=== PATIENT | male | born 1970 | race Caucasian/White ===

== ENCOUNTER 2024-06-26 05:22 | Emergency (ER) | payer BC, SELFPAY ==
[2024-06-26] VITALS (20 sets, daily range): BP systolic 133–166; BP diastolic 81–100; PULSE 47–66; RESP 16–20; TEMP 36.1; O2SAT 92–97; BMI 33.5
--- NOTE | 2024-06-26 05:32 | ED_ITS ---
HPI - General Adult General Date Seen: 06/26/24 Chief complaint: Abdominal Pain Stated complaint: right side pain Time Seen by Provider: 06/26/24 05:32 History of Present Illness HPI narrative: This is a 53-year-old gentleman who is generally healthy, has no previous abdominal surgeries, presenting to the ER at about 530 in the morning with severe right lower quadrant abdominal pain. He has been healthy and well lately. He ate a normal meal last night (cheese quesadilla). He was sleeping normally. He got up at around 4:30 a.m. to urinate and around that time he had onset of pain in his right lower quadrant. Urinated and may have passed some gas as well. It came on very suddenly. It has been very intense. He feels like it is a very severe pain located exactly in the right lower quadrant (he is pointing at McBurney's point). The pain does not radiate to his flank or down to his groin. No left-sided pain. The pain makes him nauseous but has not been vomiting. He says he is having some pressure and there like he might have to pass a bowel movement. Prior to onset of the pain he had been normal. No recent nausea or vomiting. No trouble bowel movements. No diarrhea. Urination has been normal. No fever. No injury. Related Data Previous Rx's ?Medication ?Instructions ?Recorded hydrocodone 5 mg-acetaminophen 325 1 tab PO Q4-6H PRN pain #14 tabs 06/26/24 mg tablet ondansetron 4 mg disintegrating 4 mg PO Q8H PRN nausea and 06/26/24 tablet vomiting #10 tabs tamsulosin 0.4 mg capsule (Flomax) 0.4 mg PO DAILY #10 caps 06/26/24 Allergies Allergy/AdvReac Type Severity Reaction Status Date / Time No Known Drug Allergies Allergy Verified 06/26/24 05:25 PFSH PFSH Social History Smoking Status: Never smoker Do you use any of these nicotine containing products: None Second hand tobacco smoke exposure: No How often do you have a drink containing alcohol: monthly or less How many standard drinks containing alcohol do you have on a typical day: 1 or 2 How often do you have six or more drinks on one occasion: Never AUDIT-C Alcohol total score: 1 Non-prescribed substance use: denies use service: No Exam Narrative: Exam Narrative: Constitutional: Appears well-developed and well-nourished. Alert. Very uncomfortable appearing, grimacing, is not diaphoretic but looks little bit pale, likely due to pain. HENT: Head: Atraumatic. Nose: Nose normal. Mouth/Throat: Oral mucosa is clear and moist. no trismus. Pharynx normal. Eyes: Conjunctivae normal. EOM normal. Pupils equal, round, and reactive to light. No scleral icterus. Neck: Normal range of motion. Neck supple. No tracheal deviation present. Cardiovascular: Normal rate, regular rhythm. No gallop. No friction rub. No murmur heard. Symmetric radial artery pulses Pulmonary/Chest: Effort normal. No stridor. No respiratory distress. No wheezes. No rales. No rhonchi . No tenderness. Abdominal: Soft. Bowel sounds normal. No distension. No mass. Endorses severe right lower quadrant tenderness but has no focal tenderness. Pain is not worse with palpation. No other tenderness. No CVA tenderness. No rebound. No guarding. Musculoskeletal: RUE: Normal range of motion. No tenderness. No deformity LUE: Normal range of motion. No tenderness. No deformity RLE: Normal range of motion. No edema. No tenderness. No deformity LLE: Normal range of motion. No edema. No tenderness. No deformity Neurological: Alert and oriented to person, place, and time. Normal strength. CN II-VII intact. No sensory deficit. GCS eye subscore is 4. GCS verbal subscore is 5. GCS motor subscore is 6. Normal coordination Skin: Skin is warm and dry. No rash noted. No pallor. Normal capillary refill. Psychiatric: Normal mood. Looks very uncomfortable. Polite Const: Vital Signs, click to edit/add: Vital Signs - 24 hr 06/26/24 05:25 06/26/24 06:38 06/26/24 07:00 Temperature 97.0 F L Pulse Rate Pulse Rate [Left P ulse Oximeter] 66 53 L 59 L Respiratory Rate 20 16 Blood Pressure Blood Pressure [Ri ght Upper Arm] 166/100 H 139/81 133/83 Pulse Oximetry 95 95 97 Oxygen Delivery Me thod Room Air Nasal Cannula Room Air Oxygen Flow Rate 2 06/26/24 07:13 06/26/24 07:30 06/26/24 07:32 Temperature Pulse Rate 55 L 54 L 56 L Pulse Rate [Left P ulse Oximeter] Respiratory Rate Blood Pressure 142/82 H Blood Pressure [Ri ght Upper Arm] Pulse Oximetry 96 94 95 Oxygen Delivery Me thod Oxygen Flow Rate Course Course ED Course: Recheck -830. Patient is still having some pain and increasing slightly, likely because Dilaudid squaring. Randle ordered for additional pain relief. Still cannot provide urine. Is taking sips of water and received a bolus of fluid. Patient knows we need urine sample to rule out infection. Vital Signs Vital signs: Initial Vital Signs Temperature 97.0 F L 06/26/24 05:25 Temperature Source Temporal Artery Scan 06/26/24 05:25 Pulse Rate 66 06/26/24 05:25 Pulse Rhythm Regular 06/26/24 05:25 Respiratory Rate 20 06/26/24 05:25 Blood Pressure 166/100 H 06/26/24 05:25 Blood Pressure Mean 122 H 06/26/24 05:25 Blood Pressure Position Sitting 06/26/24 05:25 Pulse Oximetry 95 06/26/24 05:25 Oxygen Delivery Method Room Air 06/26/24 05:25 Vital Signs Temperature 97.0 F L 06/26/24 05:25 Pulse Rate 66 06/26/24 05:25 Respiratory Rate 20 06/26/24 05:25 Blood Pressure 166/100 H 06/26/24 05:25 Pulse Oximetry 95 06/26/24 05:25 Oxygen Delivery Method Room Air 06/26/24 05:25 Temperature 97.0 F L 06/26/24 05:25 Pulse Rate 56 L 06/26/24 07:32 Respiratory Rate 16 06/26/24 06:38 Blood Pressure 142/82 H 06/26/24 07:32 Pulse Oximetry 95 06/26/24 07:32 Oxygen Delivery Method Room Air 06/26/24 07:00 Oxygen Flow Rate 2 06/26/24 06:38 Medications Administered Medications: Generic Name Dose Route Start Last Admin Trade Name Freq PRN Reason Stop Dose Admin Hydromorphone HCl 0.5 mg 06/26/24 05:43 06/26/24 05:55 Hydromorphone 0.5 Mg/0.5 Ml Inj IVP 0.5 mg Q1H PRN Administration Pain Discontinued Medications Generic Name Dose Route Start Last Admin Trade Name Brandon PRN Reason Stop Dose Admin Ketorolac Tromethamine 15 mg 06/26/24 05:43 06/26/24 05:52 Ketorolac 15 Mg/Ml Inj IVP 06/26/24 05:44 15 mg ONCE ONE Administration Ondansetron HCl 4 mg 06/26/24 05:43 06/26/24 05:55 Ondansetron 2 Mg/Ml Inj IVP 06/26/24 05:44 4 mg ONCE ONE Administration Medical Decision Making MDM Narrative Medical decision making narrative: This patient presents with abrupt onset of right lower quadrant abdominal pain Differential Diagnosis considered includes: Ureterolithiasis, UTI, pyeloneph ritis, AAA, colitis, diverticulitis, volvulus, appendicitis, cholecystitis, among others. At this point, the evaluation indicates that ureterolithiasis is the cause of the patient's symptoms. The patient's pain is improved after IV meds in ED. The patient is hemodynamically stable in ED. he is overall well-appearing and nontoxic. He was very uncomfortable when he presented but is much better after Toradol and Dilaudid. Kidney function normal. White count at the upper limit of normal, 11.7. I have ordered urinalysis to make sure there is no pyuria or signs of infection. Patient not able to provide urine so far here in the ER. Signed over to my partner Dr. Rivers. He will follow-up on the results of the urinalysis. However I anticipate that the urinalysis will be normal in the patient's pain will remain well controlled. If so he can discharge home. My presumptive plan is discharge to home with recheck by primary care physician or urology. I have written presumptive discharge instructions and prescriptions for pain meds (Randle) nausea meds (Zofran), and Flomax. If the patient has urinary infection or pain is uncontrolled, Dr. Rivers will arrange hospitalization. The patient's questions were answered. Lab Data Labs: Lab Results 06/26/24 Range/Units 05:40 WBC 11.12 H (4.50-11.00) K/uL RBC 5.79 (4.30-5.90) m/uL Hgb 13.7 (13.5-17.5) gm/dL Hct 44.4 (37.0-53.0) % MCV 77 L (80-100) fL MCH 24 L (26-34) pg MCHC 31 L (32-36) gm/dL RDW Coeff of Florentino 18.9 H (11.5-15.5) % Plt Count 380 (140-440) K/uL Neut % (Auto) 47.0 (42.0-72.0) % Lymph % (Auto) 31.2 (20-44) % [place] % (Auto) 10.4 (0.0-11.0) % Eos % (Auto) 9.0 H (0.0-7.0) % Baso % (Auto) 1.2 (0.0-3.0) % Neut # (Auto) 5.20 (1.7-7.0) K/uL Lymph # (Auto) 3.50 H (0.90-2.90) K/uL [place] # (Auto) 1.20 H (0.00-0.90) K/UL Eos # (Auto) 1.00 H (0.00-0.50) K/uL Baso # (Auto) 0.10 (0.00-0.30) K/uL Abs Immat Gran (auto) 0.10 (0.00-0.30) K/uL Imm/Tot Granulo (auto) 1.2 % Sodium 140 (135-149) mmol/L Potassium 3.7 (3.6-5.1) mmol/L Chloride 106 (96-114) mmol/L Carbon Dioxide 25 (20-32) mmol/L Anion Gap 9 (7-15) mEq/L BUN 19 (7-30) mg/dL Creatinine 1.3 (0.5-1.5) mg/dL Estimated Creat Clear 68.38 Estimated GFR 65 ml/min Glucose 123 H (60-115) mg/dL Calcium 9.2 (8.4-10.6) mg/dL Total Bilirubin 0.4 (0.1-1.5) mg/dL AST 35 (12-35) U/L ALT 30 (4-50) U/L Alkaline Phosphatase 70 (40-150) U/L Total Protein 7.2 (6.0-8.3) g/dL Albumin 4.4 (3.3-5.0) g/dL Lipase 117 (23-300) U/L Imaging Data CT scan - abdomen: Attestation: I have reviewed the pertinent imaging results. Radiologist's impression: IMPRESSION: 1. 6 mm obstructing proximal right ureteral stone. 2. Normal appendix. 3. Incidental 7 mm right lower lobe pulmonary nodule for which follow-up chest CT is recommended in 6 months. RECOMMENDATION: 6-MONTH FOLLOW-UP NONCONTRAST CHEST CT. Discharge Plan Discharge Clinical Impression: Kidney stone on right side Patient Disposition: Home, Self-Care Condition: Stable Instructions: Kidney Stones (ED) Additional Instructions: As we discussed, please come back to the ER right away if you have any problems specially worsening or uncontrolled pain, fever or chills, weakness, or uncontrolled nausea or vomiting. To passed her kidney stone try to drink plenty of fluids to stay hydrated. Be sure that you are urinating every couple of hours not your urine is fairly clear colored or light yellow. If your urine is dark colored, you need to drink more fluids. There is a chance he will be able to pass this kidney stone on your own at home, within the next few days. However you do have a fairly large stone. Please call if a urologist today to make a follow-up appointment for next week. You can call [facility] at [phone] OR [facility] [phone] to make an appointment with a urologist within 7-10 days. Prescriptions: New hydrocodone-acetaminophen 5-325 mg tablet 1 tab PO Q4-6H PRN (Reason: pain) Qty: 14 0RF ondansetron 4 mg tablet,disintegrating 4 mg PO Q8H PRN (Reason: nausea and vomiting) Qty: 10 0RF tamsulosin [Flomax] 0.4 mg capsule 0.4 mg PO DAILY Qty: 10 2RF Follow Up/Referrals: Deo Salazar MD [Primary Care Provider] - Stand Alone Forms: [employer] Info Instructions
--- NOTE | 2024-06-26 05:43 | CRLHL7_ITS ---
For Patients: As a result of the 21st Century Cures Act, medical imaging exams and procedure reports are released immediately into your electronic medical record. You may view this report before your referring provider. If you have questions, please contact your health care provider. INDICATION: Acute onset right lower quadrant pain. COMPARISON: None available. TECHNIQUE: CT of the abdomen and pelvis without intravenous contrast. Please note that all CT scans at this facility use dose modulation, iterative reconstruction, and/or weight-based dosing when appropriate to reduce radiation dose to as low as reasonably achievable. FINDINGS: The study is performed without intravenous contrast. This limits the sensitivity of the exam for the detection bowel pathology, focal lesions of the abdominopelvic viscera and vascular pathology including significant vascular stenosis, occlusion and dissection. ABDOMEN Liver: Diffuse hepatic steatosis. Too small to characterize 5 mm circumscribed homogeneous low-density focus in the superior right hepatic lobe (2; 21) statistically likely to represent a cyst for which no further workup or ongoing imaging surveillance is indicated in the absence of an established history of malignancy or significant underlying liver disease. No suspicious focal hepatic lesion. No intrahepatic biliary ductal dilatation. Gallbladder: Normal gallbladder size. Normal common duct caliber. No pericholecystic inflammatory changes. Pancreas: Normal pancreatic attenuation. No focal lesion. Normal duct caliber. No peripancreatic inflammatory changes. Spleen: Normal splenic attenuation. No suspicious focal lesion. Adrenal Glands: Symmetrical adrenal glands. No focal lesion of significance. Kidneys: 6 mm proximal right ureteral stone (2; 97) with associated upstream mild right hydroureteronephrosis. Asymmetrical right renal edema and perinephric stranding are consistent with obstructive uropathy. Normal bilateral renal attenuation. No suspicious focal lesion. Nonobstructing 3 mm left lower pole nephrolith (2; 95). Gastrointestinal tract: Normal caliber, attenuation and wall thickness of the gastrointestinal tract. Sigmoid diverticulosis without associated inflammatory changes. Normal mesentery. Normal appendix. Vascular: Normal outer wall to outer wall abdominal aortic caliber. Patency and luminal caliber of the abdominopelvic arterial and venous vasculature cannot be assessed on this noncontrast study. Additional findings: No incidental adenopathy. No significant ascites, free fluid or pneumoperitoneum. Incidental benign calcifications in the anterior aspect of the lower abdomen and adjacent to the sigmoid colon consistent with small calcified loose intraperitoneal bodies. PELVIS No bladder lesion is identified. No significant incidental findings related to the prostate and seminal vesicles. No abnormal free fluid. No incidental adenopathy. SKELETON AND BODY WALL No acute or suspicious incidental findings. LOWER THORAX Incidental 7 mm (mean diameter) solid right lower lobe nodule (3; 21) with possible (equivocal) peripheral calcification. IMPRESSION: 1. 6 mm obstructing proximal right ureteral stone. 2. Normal appendix. 3. Incidental 7 mm right lower lobe pulmonary nodule for which follow-up chest CT is recommended in 6 months. RECOMMENDATION: 6-MONTH FOLLOW-UP NONCONTRAST CHEST CT. Please note that all CT scans at this facility use dose modulation, iterative reconstruction, and/or weight-based dosing when appropriate to reduce radiation dose to as low as reasonably achievable. Dictated by Noah Covarrubias MD @ 06/26/2024 6:44:42 AM (Electronically Signed)
[2024-06-26 05:50] LABS: Basophils Percent Auto 1.2 % (0.0-3.0); Hematocrit 44.4 % (37.0-53.0); Hemoglobin* 13.7 gm/dL (13.5-17.5); Immature Granulocytes Pct Auto 1.2 %; Lymphocytes Percent Auto 31.2 % (20-44); Mean Corpuscular HGB Conc 31 gm/dL (32-36); Mean Corpuscular Hemoglobin 24 pg (26-34); Mean Corpuscular Volume 77 fL (80-100); Monocytes Percent Auto 10.4 % (0.0-11.0); Platelet Count* 380 K/uL (140-440); RDW Coefficient of Variation % 18.9 % (11.5-15.5); Red Blood Count 5.79 m/uL (4.30-5.90); White Blood Count* 11.12 K/uL (4.50-11.00)
[2024-06-26] MEDS: KETOROLAC 15 MG/ML inj IVP (05:52)
[2024-06-26] MEDS: HYDROmorphone 0.5 mg/0.5 ml inj IVP (05:55)
[2024-06-26] MEDS: ONDANSETRON 2 MG/ML inj 4 MG IVP (05:55)
[2024-06-26 05:56] LABS: Slide Review Reflex No
[2024-06-26 06:03] LABS: Albumin* 4.4 g/dL (3.3-5.0); Chloride* 106 mmol/L (96-114); Potassium* 3.7 mmol/L (3.6-5.1); Sodium* 140 mmol/L (135-149)
[2024-06-26 06:05] LABS: Anion Gap 9 mEq/L (7-15); Bilirubin Total* 0.4 mg/dL (0.1-1.5); Carbon Dioxide* 25 mmol/L (20-32); Creatinine* 1.3 mg/dL (0.5-1.5); Est. Creatinine Clearance* 68.38; Estimated Glomerular Filt Rate 65 ml/min
[2024-06-26 06:06] LABS: Alanine Aminotransferase* 30 U/L (4-50); Alkaline Phosphatase* 70 U/L (40-150); Aspartate Amino Transferase* 35 U/L (12-35); Blood Urea Nitrogen* 19 mg/dL (7-30); Calcium* 9.2 mg/dL (8.4-10.6); Glucose* 123 mg/dL (60-115); Lipase* 117 U/L (23-300); Total Protein* 7.2 g/dL (6.0-8.3)
--- OUTSIDE RECORDS SUMMARY | 2024-06-26 06:29 | XMS_ITS | Clinical Summary ---
Author Organization [facility] Address [place], [place] [address] Care Team Providers Care Target Man Name Role Phone Deo Salazar MD Primary Care Provider Allergies No known active allergies Medications Medication Sig Dispensed Refills Start Date End Date Status omega 2-akq-ecs-fish oil 1,000 mg (250 mg-750 mg)/5 mL liqd Take by mouth. Active aspirin (ECOTRIN) 81 mg enteric coated tablet Take by mouth. Active polyethylene glycol-electrolyte (GOLYTELY) 236-22.74-6.74 -5.86 gram suspensionIndication s:Colon cancer screening Mix according to package instructions. Take 2 liters the day before colonoscopy and take the remaining 2 liters the day of colonoscopy. 4000 mL 07/21/2023 Active albuterol HFA (PRO-AIR; VENTOLIN; PROVENTIL) 90 mcg/actuation inhalerIndications:M ild intermittent asthma without complication Inhale 2 Puffs by mouth every 4 hours. 1 Each 5 10/19/2023 Active pravastatin (PRAVACHOL) 40 mg tabletIndications:Hy percholesterolemia TAKE ONE TABLET BY MOUTH AT BEDTIME . 90 Tablet 04/16/2024 Active losartan (COZAAR) 50 mg tabletIndications:Es sential hypertension TAKE ONE TABLET BY MOUTH ONCE EVERY DAY . 90 Tablet 04/16/2024 Active hydroCHLOROthiazide 12.5 mg tabletIndications:Es sential hypertension TAKE ONE TABLET BY MOUTH ONCE EVERY DAY . 90 Tablet 04/16/2024 Active Active Problems Problem Noted Date Diagnosed Date Mild intermittent asthma without complication Encounters Date Type Department Care Team Description 04/15/[address] [id number] Deo Salazar MD Refill Request (Pravastatin, Losartan, Hydrochlorothiazide) from Last 3 Months Immunizations Name Administration Dates Next Due HepA-HepB (Twinrix) 09/27/2019,09/23/2015,2007 Inactivated Polio Vaccine 08/30/2008 Influenza RIV4 (Age 18+ Years) PRESERV FREE 06/29 Influenza, IIV3 (Age >=3 years) 09/23/2015,09/27 Influenza, IIV4 09/23/2020,09/27/2019,12/03/2018 Influenza, IIV4 (Age 6-35 Mos) 09/29/2013 MMR 09/27/2019 Meningococcal Vaccine (Menomune) 08/02/2008 Pneumococcal conj 13-Valent (Prevnar 13) 019 Td (Age >=7 Years) 12/20/2002,07/19/1991 Tdap 09/27/2019,08/30/2008 Typhoid (injectable) 09/27/2019,09/23/2015 Yellow Fever 08/30/2008 Zoster (Shingrix-RZV, recombinant) 10/02/2020, Family History Medical History Relation Name Comments Diabetes type II Father Cancer Maternal Grandfather testicu lar Cancer-breast Maternal Grandmother Relation Name Status Comments Father (Age 76) Maternal Grandfather Maternal Grandmother Mother Alive Social History Tobacco Use Types Packs/Day Years Used Date Smoking Tobacco: Never Smokeless Tobacco: Never Tobacco Cessation:Counseling Given: Yes Alcohol Use Standard Drinks/Week Comments Yes 0 (1 standard drink = 0.6 oz pur e alcohol) occ. PHQ-2 Answer Date Recorded PHQ-2 TOTAL SCORE 0 04/01/2023 Social Connections Answer Date Recorded Frequency of Communication with Friends and Fami ly Not on file 04/01/2024 Financial Resource Strain Answer Date R ecorded Difficulty of Paying Living Expenses 3 04/01/2023 Difficulty of Paying Living Expenses Not on file 04/01/2023 Food Insecurity Answer Date Recorded Worried About Running Out of Food in the Last Ye ar 1 04/01/2023 Transportation Needs Answer Date Record ed Lack of Transportation (Medical) 1 04/01/2023 Housing Stability Answer Date Recorded Unable to Pay for Housing in the Last Year 1 04/01/2023 Sex and Gender Information Value Date Recorded Sex Assigned at Not on file Gender Identity Not on file Sexual Orientation Not on file Obstetrics History Last Filed Vital Signs Vital Sign Reading Time Taken Comments Blood Pressure 131/78 07/28/2023 9:17 AM CDT Pulse 61 07/28/2023 9:17 AM CDT Temperature 36.5 ??C (97.7 ??F) 07/28/2023 8:05 AM CD T Respiratory Rate 16 07/28/2023 9:17 AM CDT Oxygen Saturation 94% 07/28/2023 9:17 AM CDT Inhaled Oxygen Concentration - - Weight 112.4 kg (247 lb 11.2 oz) 07/28/2023 8:00 AM CDT Height 180.3 cm (5' 11) 07/28/2023 8:00 AM CDT Body Mass Index 34.55 07/28/2023 8:00 AM CDT Plan of Treatment Upcoming Encounters Date Type Department Care Team (Late st Contact Info) Description 07/25/2024 2:10 PM CDT Office Visit [facility] [address] [place] [address] Deo Salazar MD [address] [place] [address] Health Maintenance Due Date Last Done Comments HIV for age 15-65 1983 Hepatitis C screening for age 18-79 1986 Fecal testing non-DNA (FIT,FOBT,iFOBT) for age 45-75 08/11/2022 08/11/2021 COVID-19 vaccine series ( season) 2023 02/21/2021, 01/23/2021 BMI (ht and wt on same day) for age 18+ 04/01/2024 04/01/2023, 08/18/2021, 07/05/2020, Additional history exists Depression screening for age 12+ 04/01/2024 04/01/2023, 08/18/2021, 07/05/2020, Additional history exists Influenza for age 50-64 07/30/2024 07/16/20 21, 09/23/2020, 09/27/2019, Additional history exists Lipids for age 45-75 04/01/2028 04/01/2023, 09/19/2021, 07/05/2020, Additional history exists Tetanus booster 09/27/2029 09/27/2019, 12/2007, 12/20/2002, Additional history exists Pneumococcal series for age 6-64 Aged Out 09/27/2019 No longer eligible based on patient's age to complete this topic Tdap Completed 09/27/2019, 08/30/2008 Zoster (shingles) series for age 50+ Completed 10/02/2020, 07/05/2020 Procedures Procedure Name Priority Date/Time Associated Diagnosis Comments LIPID PANEL W REFLEX MEASURED LDL STAT 04/01/2023 10:15 AM CDT Hypercholesterolemi a OCCULT BLOOD IFOBT STOOL Routine 08/11/2021 8:14 AM CDT Screening for colorectal cancer from Last 3 Months or Most Recently Relevant to Health Maintenance Results * (ABNORMAL) LIPID PANEL W REFLEX MEASURED LDL (04/01/2023 10:15 AM CDT) CHOLESTEROL,TOTAL 186 100 - 199 mg/dL 04/01/2023 10:39 AM [facility] TRIGLYCERIDES 190(H) <150 mg/dL 04/01/2023 10:39 AM [facility] HDL CHOLESTEROL 33(L) >40 mg/dL 10:39 AM [facility] NON-HDL CHOLESTEROL 153(H) <145 mg/dl 04/01/2023 10:39 AM [facility] CHOL/HDL RATIO 5.64(H) <4.50 04/01/2023 10:39 AM [facility] LDL CHOLESTEROL 115 <=130 mg/dL 04/01/2023 10:39 AM [facility] VLDL CHOLESTEROL 38(H) <=30 mg/dL 04/01/2023 10:39 AM [facility] PROVIDER ORDERED STATUS RANDOM 04/01/2023 10:39 AM CDT [facility] Blood BLOOD SPECIMEN / Unknown Venipuncture / Unknown 04/01/2023 10:15 AM CDT 04/01/2023 10:16 AM CDT Deo Salazar MD CHEMISTRY [facility] [address] [place] [address] * OCCULT BLOOD IFOBT STOOL (08/11/2021 8:14 AM CDT) STOOL BLOOD ,IFOBT Negative Negative 08/15/2021 12:11 PM CDT [facility] Stool STOOL SPECIMEN / Unknown Non-Blood / Unknown 08/11/2021 8:14 AM CDT 08/15/2021 8:14 AM CDT Deo Salazar MD LABORATORY [facility] [address] [place] [address], from Last 3 Months or Most Recently Relevant to Health Maintenance Advance Directives * Full Code (Latest Code Status on File) Date Activated Date Inactivated Comments 07/28/2023 7:40 AM 07/28/2023 11:32 AM Question Answer Comments Code Status Discussion: Discussed * Full Code Date Activated Date Inactivated Comments 07/12/2007 9:23 AM 07/12/2007 2:46 PM Care Teams Target Man Relationship Specialty Start Date End Date [facility] [address] [facility] [id number] P[facility] - General Family [facility] 01/01/21
--- NOTE | 2024-06-26 06:37 | PC.NURSE ---
Pt placed on oxygen 2L per NC for sats 89% on room air. Oxygen sats improved to 95-98%.
[2024-06-26] MEDS: HYDROCODONE-ACETAMIN 5-325 MG 1 TAB PO (08:39)
[2024-06-26 09:46] LABS: Appearance Urine Clear (Clear); Bilirubin Urine Negative (Negative); Blood Urine Trace-lysed (Negative); Color Urine Yellow (Yellow); Glucose Urine Negative (Negative); Ketones Urine Negative (Negative); Leukocyte Esterase Urine Negative (Negative); Nitrite Urine Negative (Negative); Protein Urine 1+ (Negative); Specific Gravity Urine >= 1.030 (1.000-1.030); Urobilinogen Urine 0.2 (0.2-1.0); pH Urine 5.5 (5.0-8.5)
[2024-06-26 10:02] LABS: RBC Urine 0-2 (0-2); Squamous Epithelial Cell Urine Moderate (None-Few); WBC Urine 0-2 (0-5)
[2024-06-26 10:03] LABS: Bacteria Urine Few; Mucus Urine Few
== END 2024-06-26 11:03 | disposition home or self-care (01) ==
PROVIDERS: Emergency Provider Emergency Medicine; PCP Family Medicine
DX: N20.0 Calculus of kidney (principal)
CPT/HCPCS: 36415; 74176; 80053; 81001; 83690; 85025; 87086; 96374; 96375; 99283; 99284; A9270; J1170; J1885; J2405

== ENCOUNTER 2024-07-24 09:00 | Outpatient (RCR) | payer BC, SELFPAY ==
[2024-07-18 10:16] LABS: Basophils Absolute Auto 0.07 K/uL (0.00-0.30); Basophils Percent Auto 0.7 % (0.0-3.0); Eosinophils Percent Auto 3.9 % (0.0-7.0); Hematocrit 44.1 % (37.0-53.0); Hemoglobin* 13.7 gm/dL (13.5-17.5); Immature Granulocytes Abs Auto 0.13 K/uL (0.00-0.30); Immature Granulocytes Pct Auto 1.3 %; Lymphocytes Percent Auto 19.4 % (20-44); Mean Corpuscular HGB Conc 31 gm/dL (32-36); Mean Corpuscular Hemoglobin 24 pg (26-34); Mean Corpuscular Volume 77 fL (80-100); Monocytes Percent Auto 9.3 % (0.0-11.0); Neutrophils Absolute Auto 6.67 K/uL (1.7-7.0); Neutrophils Percent Auto 65.4 % (42.0-72.0); Platelet Count* 431 K/uL (140-440); RDW Coefficient of Variation % 18.2 % (11.5-15.5); Red Blood Count 5.71 m/uL (4.30-5.90)
[2024-07-18 10:17] LABS: Slide Review Reflex No
[2024-07-18 10:25] LABS: Aspartate Amino Transferase* 34 U/L (12-35); Creatinine* 1.1 mg/dL (0.5-1.5); Estimated Glomerular Filt Rate 79 ml/min
[2024-07-18 10:39] LABS: Cholesterol* 167 mg/dL (90-199); HDL Cholesterol* 29 mg/dL (>=40); LDL Cholesterol Calculated 83 mg/dL (<100); Triglycerides* 274 mg/dL (40-149)
--- NOTE | 2024-07-24 10:03 | ONC.NURNOTE ---
Pt here for midline picc removal. Tolerated well. Length of catheter 18cm, same as insertion documentation.
== END 2025-01-14 23:59 | disposition home or self-care (01) ==
LOC: CCIC 09:00
PROVIDERS: PCP Family Medicine; Referring Provider Family Medicine; Visit Provider Clinical Nurse Specialist
DX: N20.1 Calculus of ureter (principal); Z45.2 Encounter for adjustment and management of vascular access device
CPT/HCPCS: 36415; 36592; 80061; 82565; 84450; 85025; 99211; A4221